=== PATIENT | male | born 1970 | race Caucasian/White ===

== ENCOUNTER 2017-05-18 08:50 | Day surgery (SDC) | payer OTHER ==
[2017-05-18] VITALS (11 sets, daily range): BP systolic 87–145; BP diastolic 49–87
[~2017-05-18] VITALS: Ht 177.8 cm; Wt 98.4 kg
[~2017-05-18 08:50] MED LIST: NORCO 10/3251 EA ORAL; ceFAZolin 1gm in D5W 55ml IVPB ONE; celeBREX 200mg Cap **SURGERY PATIENTS ONLY ORAL ONE; oxyCONTIN 20mg tab ORAL ONE
[2017-05-18] MEDS ORDERED: LR 1000ml 1,000 ML IVLG SCH (09:43)
--- NOTE | 2017-05-18 09:43 | Anethesia Preoperative Eval ---
Anesthesia Pre-op PMH/ROS General Date of Evaluation: May 18, 2017 Anesthesiologist: Yogi ASA Score: ASA 2 Mallampati Score Class I : Soft palate, uvula, fauces, pillars visible Class II: Soft palate, uvula, fauces visible Class III: Soft palate, base of uvula visible Class IV: Only hard plate visible Mallampati Classification: Class II Surgeon: Sheng Diagnosis: Right shoulder derangement Surgical Procedure: Right shouler arthroscopoy and subacromial decompression Anesthesia History: none Family History: no anesthesia problems Allergies: Coded Allergies: No Known Allergies (Unverified , 05/18/17) Medications: see eMAR Past Medical History Cardiovascular: Reports: HTN, Denies: CAD, [place], valve dz, arrhythmia, other Pulmonary: Denies: asthma, COPD, ANDREZ, other Gastrointestinal/Genitourinary: Reports: GERD, other - born with only right kidney, Denies: CRI, ESRD Neurologic/Psychiatric: Denies: dementia, CVA, depression/anxiety, TIA, other Endocrine: Denies: DM, hypothyroidism, steroids, other HEENT: Denies: cataract (L), cataract (R), glaucoma, [place] (L), [place] (R), other Hematology/Immune: Denies: anemia, DVT, bleeding disorder, other Musculoskeletal/Integumentary: Denies: OA, RA, DJD, DDD, edema, other Other: other - overweight PSxH Narrative: Right ACL repair, lumbar laminotomy, left achilles repair Anesthesia Pre-op Phys. Exam Physician Exam Last Vital Signs Date Time Temp Pulse Resp B/P (MAP) Pulse Ox O2 Delivery O2 Flow Rate FiO2 05/18/17 09:16 97.6 65 18 145/87 96 Room Air 97.6 Constitutional: NAD Cardiovascular: RRR Respiratory: CTA Airway Exam Mallampati Score: Class II MO: full ROM: full Anesthesia Pre-op A/P Labs see chart Studies Pre-op Studies: EKG - sr Risk Assessment & Plan Assessment: ASA II Plan: GA with right interscalene nerve block Status Change Before Surgery: No Pre-Antibiotics Drug: Ancef 2g Given Within 1 Hr of Incision: Yes MALIA NEAL M.D. May 18, 2017 09:43
[2017-05-18] MEDS ORDERED: Midazolam 2mg/2ml Inj IVP PRN (09:45)
[2017-05-18] MEDS ORDERED: fentaNYL 100 mcg/2 mL IV PRN (09:45)
[2017-05-18] MEDS ORDERED: LORazepam Inj 2mg/ml 1ml IV PRN (09:45)
[2017-05-18] MEDS ORDERED: DiphenhydrAMINE 50mg/ml Inj IVP PRN (09:45)
[2017-05-18] MEDS ORDERED: Hydromorphone 0.5mg/0.5ml inj IVP PRN (09:45)
--- NOTE | 2017-05-18 09:47 | Pre-Procedure Note/Attestation ---
Pre-Procedure Note/Attestation Complete Prior to Procedure Planned Procedure: right Procedure Narrative: shoulder arthroscopy diagnostic, with sad Indications for Procedure Pre-Operative Diagnosis: right shoulder impingement Attestation I attest that I discussed the nature of the procedure; its benefits; risks and complications; and alternatives (and the risks and benefits of such alternatives ), prior to the procedure, with the patient (or the patient's legal exhibit display representative). I attest that, if there was a reasonable possibility of needing a blood transfusion, the patient (or the patient's legal exhibit display representative) was given the [facility] standardized written summary, pursuant to the Titus Mike Blood Safety Act ([place] Health and Safety Code # 1645, as amended). I attest that I re-evaluated the patient just prior to the surgery and that there has been no change in the patient's H&P, except as documented below: SERA PEÑA May 18, 2017 09:46
--- NOTE | 2017-05-18 09:47 | Operative Note - PDOC ---
Operative Note Operative Note Pre-op Diagnosis: right shoulder impingement Procedure: right shoulder arthroscopy sad Post-op Diagnosis: same as pre-op plus Anesthesia: MAC Specimen: none Complications: none Condition: stable Estimated Blood Loss: none Implant(s) used?: No SERA PEÑA May 18, 2017 09:47
[2017-05-18] MEDS ORDERED: Ropivacaine 5mg/ml Vial 30ml INJ ONE (10:41)
[2017-05-18] MEDS ORDERED: Propofol 200mg/20ml IV ONE (10:41)
[2017-05-18] MEDS ORDERED: EPINEPHrine 1mg/1ml Amp ONE (10:41)
[2017-05-18] MEDS ORDERED: Bupivacaine 0.25% Inj 30ml INJ ONE (10:49)
[2017-05-18] MEDS ORDERED: NS Irrig 4000ml IRRIG ONE (11:25)
--- NOTE | 2017-05-18 11:35 | Immediate Post-Op Evaluation ---
Immediate Post-Op Evalulation Immediate Post-Op Evalulation Procedure: Right shoulder arthroscopy Date of Evaluation: May 18, 2017 Time of Evaluation: 12:33 IV Fluids: 900 Blood Products: 0 Estimated Blood Loss: min Urinary Output: 0 Blood Pressure Systolic: 90 Blood Pressure Diastolic: 48 Pulse Rate: 58 Respiratory Rate: 17 O2 Sat by Pulse Oximetry: 100 Temperature (Fahrenheit): 97.4 Pain Score (1-10): 0 Nausea: No Vomiting: No Complications 0 Patient Status: awake, reacts, patent, none Hydration Status: adequate Drug: Ance 2g Given Within 1 Hr of Incision: Yes Time Given: 11:15 MALIA NEAL M.D. May 18, 2017 11:35
--- NOTE | 2017-05-18 11:36 | 48 Hour Post Anesthesia Eval ---
Post Anesthesia Evaluation Procedure: Right shoulder arthroscopy Date of Evaluation: May 18, 2017 Airway: patent Nausea: No Vomiting: No Pain Intensity: 0 Hydration Status: adequate Cardiopulmonary Status: at baseline Mental Status/LOC: patient returned to baseline Post-Anesthesia Complications: 0 Follow-up care needed: ready to discharge MALIA NEAL M.D. May 18, 2017 11:35
[2017-05-18] MEDS ORDERED: Norco 5mg/325mg tab ORAL PRN (16:01)
[2017-05-18] MEDS ORDERED: Tylenol #3 tab (300mg/30mg) ORAL PRN (16:01)
[2017-05-18] MEDS ORDERED: D5 1/2NS 1,000 ML IV SCH (16:01)
[2017-05-18] MEDS ORDERED: HYDROmorphone 1mg/ml Carpuject SUBQ PRN (16:01)
--- NOTE | 2017-05-18 19:30 | Operative Note - Dictated ---
DATE OF OPERATION: 05/18/2017 PREOPERATIVE DIAGNOSES: 1. Right shoulder impingement syndrome. 2. Right shoulder rotator cuff partial thickness tear. POSTOPERATIVE DIAGNOSES: 1. Tear of the long head of biceps tendon. 2. A partial intra-articular rotator cuff along the supraspinatus tendon. 3. Impingement syndrome. PROCEDURE: 1. Right shoulder arthroscopy and extensive intra-articular debridement. 2. Right shoulder debridement/repair of articular-sided partial rotator cuff tear. 3. Subacromial decompression bursectomy. SURGEON: Brad Patricio M.D. ANESTHESIA: Interscalene with general. INDICATION FOR PROCEDURE: The patient is a pleasant gentleman, who has had progressive right shoulder pain. He had MRI, which showed a partial rotator cuff tear and clinical evidence of impingement syndrome. He had a positive diagnostic subacromial cortisone injection. He failed conservative treatment. He still has significant pain and discomfort, therefore, elected to undergo right shoulder arthroscopy, subacromial decompression, bursectomy, and possible repair versus debridement of the rotator cuff. Risks, limitations, expectations, and complications of procedure were discussed in detail. All questions addressed. DESCRIPTION OF PROCEDURE: An informed consent was obtained. The patient was brought to the operative room and placed the patient under monitored anesthesia control. The patient was then carefully placed in the beach chair position. Right shoulder was prepped and draped in a sterile manner. Time-out was performed. Ancef was administered. Portal sites were injected with 0.25% Marcaine with epinephrine. Inferolateral stab incision was then made. Trocar was introduced into the glenohumeral joint. There is no significant chondral damage. The anterior labrum appeared to be intact. The long head of biceps tendon was not visible. The undersurface of the supraspinatus had a partial articular-sided rotator cuff tear. Shaver was then placed through the rotator interval. Debridement of the superior labrum was performed on stable rim of tissue along with the undersurface of the rotator cuff. Once this was debrided, there was a partial rotator cuff tear representing less than 15% of the rotator cuff. At this point, the camera was repositioned in the subacromial space. There was hypertrophic bursal tissue that was debrided to better visualize the anterior lateral aspect of the acromion. Acromioplasty was started from lateral to medial, completed from posterior to anterior. The bursectomy was completed posteriorly. Once that was completed, the instruments were removed. Portal sites were closed with 3-0 Monocryl sutures. Steri-Strips and a sterile dressing were applied. The patient was awoken and taken to recovery room with stable vital signs. ESTIMATED BLOOD LOSS: None. COMPLICATIONS: None. SPECIMENS: None. IMPLANTS: None. Brad Patricio M.D. DR: ARACELI JOB#: [id number] CC:
== END 2017-05-18 14:25 | disposition home or self-care (01) ==
LOC: SUR 08:50
DX: M75.41 Impingement syndrome of right shoulder (principal); M75.111 Incomplete rotator cuff tear or rupture of right shoulder, not specified as traumatic; S46.111A Strain of muscle, fascia and tendon of long head of biceps, right arm, initial encounter; I10 Essential (primary) hypertension; K21.9 Gastro-esophageal reflux disease without esophagitis; Q60.0 Renal agenesis, unilateral; X58.XXXA Exposure to other specified factors, initial encounter; Y93.9 Activity, unspecified; Y92.9 Unspecified place or not applicable
CPT/HCPCS: 29823; J0171; J2704; J2795; J3490; 94003; 94150